=== PATIENT | male | born 2000 | race Caucasian/White ===

== ENCOUNTER 2021-03-20 13:40 | Emergency (ER) | payer MEDICAID, SELFPAY ==
[2021-03-20 14:09] VITALS: BP 152/81; PULSE 105; RESP 18; TEMP 37.3; O2SAT 97; BMI 23.0
[2021-03-20] MEDS: Amoxicillin/Potassium Clav 875 MG TABLET PO (14:33)
[2021-03-20] MEDS: Ibuprofen 400 MG TABLET PO (14:33)
--- NOTE | 2021-03-20 14:40 | ED.GENADULT ---
HPI - General Adult General Chief complaint: General Medical Stated complaint: Strept Time Seen by Provider: 03/20/21 14:02 Source: patient Mode of arrival: ambulatory History of Present Illness HPI narrative: 20-year-old male with no significant past medical history presenting to ED complaining of sore throat, tonsillar swelling, subjective fever, headaches/myalgias x 3-4 days. Admits to strep throat commonly & these symptoms are similar. Denies inability/difficulty swallowing, drooling, cough, CP/SOB, recent travel, COVID-19 exposure. Is vaccinated for COVID-19 Onset (ago): day(s) Related Data Previous Rx's Medication Instructions Recorded amoxicillin 875 mg-potassium 1 tab PO Q12H 7 Days #14 tab 03/20/21 clavulanate 125 mg tablet (Augmentin) Allergies Allergy/AdvReac Type Severity Reaction Status Date / Time No Known Allergies Allergy Verified 03/20/21 14:23 Review of Systems Review of Systems: Constitutional: + Fever, + Chills ENT/Mouth: No Ear Pain, No Nasal Congestion, No Sinus Pain, No Hoarseness, + sore throat, No Rhinorrhea, No Swallowing Difficulty Cardiovascular: No Chest Pain, No SOB Respiratory: No Cough, No Sputum, No Wheezing Gastrointestinal: No Nausea, No Vomiting, No Diarrhea, No Constipation, No Abdominal pain Genitourinary: No Dysuria, No Hematuria, No Flank Pain Musculoskeletal: No joint pain, + Myalgias Skin: No Skin Lesions, No rash Neuro: No Weakness, No Numbness, +headache Yes all other systems are reviewed and are negative [facility] Past Medical History Attestation statement: The following information was validated with the patient. Medical History No known health problems Social History Social History Advance Directives: Yes Advance Directives Information Provided: Yes Advance Directives on File: No Physical Exam Vital Signs: Vital Signs: Last Vital Signs Temp 99.2 F 03/20/21 14:09 Pulse 105 H 03/20/21 14:09 Resp 18 03/20/21 14:09 BP 152/81 H 03/20/21 14:09 Pulse Ox 97 03/20/21 14:09 BMI result Body Mass Index 23.0 Const: General: cooperative, healthy appearing and no acute distress Orientation/consciousness: patient oriented x3 Limitations: no limitations HENMT: Other: + bilateral tonsillar erythema, swelling, and exudates Head: Yes normal to inspection Ears: hearing grossly normal bilaterally, external ears normal, TM's normal bilaterally and mastoids normal General nose exam: Normal external nose present Face and sinus: Yes normal facial exam Mouth: Normal oral and palatal mucosa present Throat: Yes abnormal tonsil, No peritonsillar mass and No uvula laterally displaced Eyes: General: appearance normal, both eyes and all related structures EOM: EOMs intact bilaterally Neck: Other: + submandibular lymphadenopathy Neck: Yes normal visual inspection and No anterior neck swelling Resp: Effort & Inspection: normal respiratory effort and no stridor Auscultation: clear to auscultation bilaterally, no rales, no rhonchi and no wheezes Cardio: Rate: regular rate Heart sounds: S1 normal heart sound present and S2 normal heart sound present Skin: Rashes: no rashes Wounds: no wounds Neuro: General: patient oriented x3 Gait exam (Neuro): Normal gait present Extrem: General: Yes normal to inspection Course Course Course Narrative: -rapid strep and COVID-19 negative. Patient given 1st dose of Augmentin in the ED as clinically has strep pharyngitis Medical Decision Making [facility] Narrative Medical decision making narrative: 20-year-old male with no significant past medical history presenting to ED complaining of sore throat, tonsillar swelling, subjective fever, headaches/myalgias times 3-4 days. On exam mildly tachycardic likely from low-grade fever 99.2, physical exam as above consistent with strep pharyngitis. Will rule out COVID-19/viral illness. Low concern for pneumonia Plan: Rapid strep, COVID-19, 1st dose of Augmentin Medical Records Medical records reviewed: Yes I reviewed the patient's medical records. Lab Data Lab results reviewed: Yes I reviewed the patient's lab results. Labs: Lab Results 03/20/21 03/20/21 Range/Units 14:30 14:30 COVID-19 (NSETOR) Negative (Negative) COVID-19 Clin Com See Note S. pyogenes GrpA JOSE Negative (Negative) Discharge Plan Discharge Clinical Impression: Strep pharyngitis Patient Disposition: Home, Self-Care Instructions: Strep Throat (ED) Additional Instructions: You tested negative for COVID-19. You likely have strep throat. Augmentin as an antibiotic please take as prescribed Please take Tylenol and Motrin at home as needed for pain and fever/swelling Stay hydrated Gargle with warm salt water Follow-up with her doctor as needed Prescriptions: New amoxicillin-pot clavulanate [Augmentin] 875-125 mg tablet 1 tab PO Q12H 7 Days Qty: 14 RF: 0 Referrals: Physician,Unknown J [Primary Care Provider] - 2 days
[2021-03-20 15:17] LABS: IDNOW Serial# 55D5AD1C; Strep A Nucleic Acid Negative (Negative)
[2021-03-20 15:18] LABS: COVID-19 Test Negative (Negative); IDNOW Serial# 55D5AD1C
[2021-03-20 15:34] VITALS: BP 121/72; PULSE 99; RESP 18; TEMP 36.7; O2SAT 95
== END 2021-03-20 15:46 | disposition home or self-care (01) ==
PROVIDERS: Physician Assistant; Emergency Provider Emergency Medicine
DX: J02.0 Streptococcal pharyngitis (principal); Z20.822 Contact with and (suspected) exposure to COVID-19; Z79.899 Other long term (current) drug therapy
CPT/HCPCS: 36415; 87635; 87651; 99283

== ENCOUNTER 2023-01-07 18:18 | Inpatient (IN) | payer SELFPAY ==
[2023-01-07 18:47] VITALS: BP 122/72; PULSE 67; RESP 14; TEMP 37; O2SAT 97; BMI 24.8
--- NOTE | 2023-01-07 20:04 | ED.GENADULT ---
HPI - General Adult General Chief complaint: General Medical Stated complaint: foreign body in rectum Time Seen by Provider: 01/07/23 20:55 Source: patient Mode of arrival: ambulatory Limitations: no limitations History of Present Illness HPI narrative: Patient comes to the emergency room complaining of a foreign body stuck in the rectum. Patient states that he has had a dildo in his rectum since 16:00, 6 hours ago. Patient complaining of mild abdominal cramping, no severe abdominal pain , no rectal pain. Patient denies any rectal bleeding. Related Data Previous Rx's Medication Instructions Recorded amoxicillin 875 mg-potassium 1 tab PO Q12H 7 days #14 tabs 03/20/21 clavulanate 125 mg tablet (Augmentin) Allergies Allergy/AdvReac Type Severity Reaction Status Date / Time No Known Allergies Allergy Verified 03/20/21 14:23 Review of Systems Review of Systems: Constitutional : No Weight loss, No Fever, No Chills, No Night Sweats, No Fatigue, No Malaise ENT/Mouth : No Hearing loss, No Ear Pain, No Nasal Congestion, No Sinus Pain, No Hoarseness, No sore throat, No Rhinorrhea, No Swallowing Difficulty Eyes: No Eye Pain, No Swelling, No Redness, No Foreign Body, No Discharge, No Vision Changes Cardiovascular : No Chest Pain, No SOB, No Dyspnea on Exertion, No Orthopnea, No Edema, No Palpitations Respiratory : No Cough, No Sputum, No Wheezing, No Smoke Exposure, No Dyspnea Gastrointestinal : No Nausea, No Vomiting, No Diarrhea, No Constipation, No abdominal Pain, No Hematochezia, No Melena, complaining of dildo stuck in rectum Genitourinary : no irregular bleeding, No Dysuria, No Urinary Frequency, No Hematuria, No Urinary Incontinence, No Urgency, No Flank Pain, No Urinary Flow Changes, No Hesitancy Musculoskeletal : No joint pain, No Myalgias, No Joint Swelling Skin : No Skin Lesions, No rash Neuro : No Weakness, No Numbness, No Paresthesias, No Loss of Consciousness, No Dizziness, No Headache Psych : No Anxiety/Panic, No Depression, No SI/HI/AH/VH, No Social Issues, Heme/Lymph: No Bruising, No Bleeding,No Lymphadenopathy Endocrine : No Polyuria, No Polydipsia, No Temperature Intolerance PMFSH Past Medical History Medical History No known health problems Social History Social History Advance Directives: No Physical Exam ED Vital Signs: Vital Signs - 24 hr 01/07/23 18:47 Temperature 98.6 F Pulse Rate 67 Respiratory Rate 14 Blood Pressure 122/72 Pulse Oximetry 97 Oxygen Delivery Method Room Air BMI result Body Mass Index 24.8 Const Other: Appearance: Alert. Oriented X3. No acute distress. Eyes: Pupils equal, round and reactive to light. ENT: Pharynx normal. Neck: Normal inspection. Neck supple. No lymph nodes noted. No crepitus CVS: Normal heart rate and rhythm. Pulses normal. Normal S1 and S2 Respiratory: No respiratory distress. Breath sounds normal. No Wheezing. No rales Abdomen: Soft and nontender. No rigidity. No distention. On digital rectal exam, I was unable to palpate the tip of the foreign body Skin: Skin warm and dry. Normal skin color. Normal skin turgor. Extremities: No lower extremity edema. No Lacerations. No Rash Neuro: Oriented X 3. No motor deficit. No sensory deficit. Moving all extremities. No slurred speech. CN 2 through 12 grossly intact Psych: calm, cooperative, normal affect Course Course Course Narrative: This is an RME: Additional HPI, ROS, PE not included below will be deferred to primary provider. 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 Denies pain, N/V, ABD pain. Ambulating and sittin without difficulty. Plan: XR pelvis Medical Decision Making Medical Decision Making MDM Narrative: -my interpretation of KUB: Unclear if there was a foreign body in rectum? -my interpretation of CT scan: Foreign body present above the rectum -I attempted a digital rectal exam, however, the foreign body is too far up and could not palpate the distal end of the foreign body. -I discussed the above-mentioned with Dr. Rodriguez from surgery, patient will be going to the OR -per patient, the last time he ate was at 14:00, 9 hours ago Differential Diagnosis Differential Diagnoses: The differential diagnosis associated with the presentation includes (For rectal body and rectum, sigmoid colon perforation) Admission/Observation Consideration of admission/observation: Escalation of care including admission/observation considered Consult Healthcare Provider Management of the patient was discussed with: Tuber Operator Independent Interpretation I performed an independent interpretation of an: CT Scan Radiology Impression Discussion of test interpretation with radiology: I have reviewed the radiologist's reading. Radiologist Impression: There is an elongated tubular foreign body centered within the sigmoid colon with mildly hyperattenuating characteristics (84 Hounsfield units), measuring 15 x 3.5 x 3.8 cm. The distal end of this foreign body is approximately 11 cm from the anal sphincter. The descending colon and rectum are completely decompressed. Normal appearance of the cecum and appendix. No demonstrated pelvic free fluid collection or free gas. Normal appearance of the prostate gland, seminal vesicles, and urinary bladder. MUSCULOSKELETAL: Normal appearance of the sacrum, innominate bones, and bilateral hips. Normal appearance of the sacroiliac joints and pubic symphysis. No demonstrated significant abnormalities of the pelvic soft tissues. CT/CT pelvis wo IV con IMPRESSION: There is a 15 cm elongated tubular foreign body centered within the sigmoid colon. The distal end of this foreign body is approximately 11 cm from the anal sphincter. Independent Historian Clinical information obtained from an independent historian. History obtained from or confirmed by: Other (Partner) Critical Care Time Critical Care Time Critical Care Time: Yes Total Critical Care Time: 60 Attestation: I have personally provided critical care time. Time includes review of lab data, radiology results, discussion with consultants, and monitoring for potential decompensation. Intervention performed as documented. Discharge Plan Discharge Clinical Impression: Rectal foreign body Patient Disposition: Still a Patient Prescriptions: No Action amoxicillin-pot clavulanate [Augmentin] 875-125 mg tablet 1 tab PO Q12H 7 Days Qty: 14 0RF
--- NOTE | 2023-01-07 20:10 | PC.NURSE ---
pt currently taken to xray.
--- NOTE | 2023-01-07 22:53 | PC.NURSE ---
This RN assumed care at 2129. RN asked patient to draw picture of rectal foreign body, patient shanna a 7 inch silicone dildo that he states he McGyver'ed and took off the suction cup at the base of the toy. Patient also stated he feels the toy is traveling further up and that he's experiencing more cramps, IV placed and MD aware of patient's pain. Plan is for patient to go to operating room. Plan of care ongoing
[2023-01-07 23:12] LABS: Alanine Aminotransferase 21 U/L (0-40); Albumin Level 4.9 g/dL (3.5-5.0); Alkaline Phosphatase 56 U/L (39-117); Anion Gap 14 (12-20); Aspartate Amino Transferase 22 U/L (5-37); Bilirubin Direct 0.1 mg/dL (0.0-0.5); Bilirubin Total 0.4 mg/dL (0.0-1.0); Blood Urea Nitrogen 16 mg/dL (9-16); Calcium 9.9 mg/dL (8.4-10.2); Carbon Dioxide 25 mmol/L (22-29); Chloride 106 mmol/L (96-108); Creatinine Clr Calc Pharmacy 94.1; Estimated Glomerular Filt Rate > 60; Glucose Random 88 mg/dL (60-115); Potassium 4.5 mmol/L (3.3-5.1); Sodium 140 mmol/L (135-145); Total Protein 8.4 g/dL (6.5-8.0)
[2023-01-08] VITALS (13 sets, daily range): BP systolic 97–148; BP diastolic 47–82; PULSE 65–95; RESP 14–18; TEMP 36.2–37.2; O2SAT 96–100; BMI 29.1
--- NOTE | 2023-01-08 00:03 | PM.HPGS ---
History of Present Illness History of Present Illness Date of Service: 01/08/23 Chief complaint: foreign body in rectum Narrative: Geovanna Mercado is a 22 year old male Who with his partner earlier today inserted a silicone still though in the rectum which got stuck. They have been unable to get it. As result patient comes in here. He has been having some cramping but nothing in lines of peritonitis. No nausea or vomiting. Patient is relatively healthy otherwise. Review of Systems Review of Systems: Yes all other systems are reviewed and are negative [facility] Past Medical History Medical History No known health problems Social History Social History Advance Directives: No Meds Allergies Allergy/AdvReac Type Severity Reaction Status Date / Time No Known Allergies Allergy Verified 03/20/21 14:23 Physical Exam Vital Signs: Vital Signs: Last Vital Signs Temp 98.6 F 01/07/23 18:47 Pulse 67 01/07/23 18:47 Resp 14 01/07/23 18:47 BP 122/72 01/07/23 18:47 Pulse Ox 97 01/07/23 18:47 O2 Del Method Room Air 01/07/23 18:47 BMI result Body Mass Index 24.8 Const: General: cooperative, healthy appearing, comfortable and no acute distress HEENT: Head: Yes normal to inspection Resp: Effort & Inspection: normal respiratory effort and able to speak in complete sentences Auscultation: clear to auscultation bilaterally Cardio: Rate: regular rate Rhythm: regular rhythm GI: Other: Abdomen is soft nondistended nontender Skin: General skin exam: no rashes or lesions noted Results Results Labs: Short CBC 01/07/23 Range/Units 22:44 WBC 15.1 H (4.8-10.8) X10*3/uL Hgb 15.2 (14.0-18.0) g/dl Hct 44.1 (42.0-52.0) % Plt Count 348 (160-400) X10*3/uL BMP 01/07/23 22:44 Sodium 140 Potassium 4.5 Chloride 106 Carbon Dioxide 25 BUN 16 Creatinine 0.99 Calcium 9.9 Liver Function 01/07/23 Range/Units 22:44 Total Bilirubin 0.4 (0.0-1.0) mg/dL Direct Bilirubin 0.1 (0.0-0.5) mg/dL AST 22 (5-37) U/L ALT 21 (0-40) U/L Alkaline Phosphatase 56 (39-117) U/L Albumin 4.9 (3.5-5.0) g/dL Abdomen CT scan report/results: report reviewed and image reviewed CT scan - pelvis: report reviewed and image reviewed Assessment and Plan (1) Rectal foreign body: Status: Acute Plan 22-year-old male with rectal foreign body unable to be extracted no evidence of peritonitis. Plan to carry out exam under general anesthesia and hopefully we can manually remove it per rectum. If not may require exploratory laparotomy possible colotomy and possible colostomy. Patient understands the risks and benefits and agrees to the procedure. Time Spent With Patient Time: Total time managing care of this patient today ____ minutes. Quality Stroke Does the patient have a stroke diagnosis?: No VTE Prior VTE?: No VTE Risk Level:: Surgical - low VTE Device Contraindication: N/A - Device Ordered VTE Drug Contraindication: Treatment Not Indicated Procedures Date of Service Date of Service: 01/08/23
--- NOTE | 2023-01-08 00:31 | PC.NURSE ---
Report given to Uziel in OR, patient medicated per MAR and transferred over by Sobeida VARELA
--- NOTE | 2023-01-08 05:29 | HO.ANESPROP2 ---
[facility] Active Problems Active Problems: All Active Problems (Updated 01/07/23 @ 23:00 by Maranda Medina MD) Rectal foreign body (Acute) Past Medical History Medical History No known health problems Family History Family history of problems with anesthesia: No Surgical History History of Problems with Anesthesia: No Social History Social History Substance Use Type: Marijuana Substance Use Frequency: Occasionally Advance Directives: No Meds Allergies Allergy/AdvReac Type Severity Reaction Status Date / Time No Known Allergies Allergy Verified 03/20/21 14:23 Exam Exam Date and Time: January 08, 2023 05 Height,Weight and Vital Signs: Height 5 ft 3 in Weight 63.503 kg Last Vital Signs Temp 98.5 F 01/08/23 05:25 Pulse 90 01/08/23 05:25 Resp 16 01/08/23 05:25 BP 148/64 H 01/08/23 05:25 Pulse Ox 100 01/08/23 05:25 O2 Del Method Nasal Cannula 01/08/23 05:25 O2 Flow Rate 4 01/08/23 05:25 Pertinent Lab Results Pertinent Lab Results: Laboratory Tests 01/07/23 22:44 WBC 15.1 H RBC 5.32 Hgb 15.2 Hct 44.1 MCV 82.9 MCH 28.6 MCHC 34.5 RDW 12.4 Plt Count 348 MPV 9.3 L Immature Gran % (Auto) 0.7 H Neut % (Auto) 60.5 Lymph % (Auto) 29.9 [place] % (Auto) 7.3 Eos % (Auto) 1.0 Baso % (Auto) 0.6 Lymph # (Auto) 4.5 [place] # (Auto) 1.1 Eos # (Auto) 0.2 Baso # (Auto) 0.1 Abs Immat Gran (auto) 0.11 H Absolute Neuts (auto) 9.1 H Absolute Nucleated RBC 0.000 Nucleated RBC % (auto) 0.0 PT 11.9 INR 1.0 APTT 32.5 Sodium 140 Potassium 4.5 Chloride 106 Carbon Dioxide 25 Anion Gap 14 BUN 16 Creatinine 0.99 Estim Creat Clear Calc 94.1 Estimated GFR > 60 Random Glucose 88 Calcium 9.9 Total Bilirubin 0.4 Direct Bilirubin 0.1 AST 22 ALT 21 Alkaline Phosphatase 56 Total Protein 8.4 H Albumin 4.9 Airway Mallampati Class: II TM Dist: >3cm Neck ROM: Full Assessment and Plan Assessment Anesthesia Assessment: Anesthesia Plan Discussed and Chart Reviewed Final Anesthetic Review Family History of Problems with Anesthesia: No History of Problems with Anesthesia: No NPO: Yes ASA Class: II and Emergency Final Preanesthetic Review: No Changes in Pt Med Stat, Meds/Allgs Chart Reviewed, Consent Obtained/Reviewed and Anes Risks/Benef Reviewed Patient Risk: Low Procedure Risk: Intermediate Anesthetic Plan Anesthetic Plan: GA Disposition: Standard PACU
--- NOTE | 2023-01-08 16:27 | MHC.CM.PN ---
PT REPORTS HE LIVES WITH HIS PARTNER AND IS INDEPENDENT WITH CARE PT HAS NO DME AND NO SERVICES PT ALSO HAS NO PCP AND HAS BEEN UNABLE TO TRANSITION TO FROM [place] REFERR[place] SENT TO [facility] PT DECLINES TO COMPLETE A HCP DCP: HOME NO SERVICES VIA PRIVATE TRANSPORT
--- NOTE | 2023-01-08 20:36 | PM.PNGS ---
Subjective Subjective Date of Service: 01/08/23 Interval history: pt doing well, not passing gas as yet, no bowel movement. was complaining of rectal pain earlier but improved now. no bleeding. having abdo cramping tolerating liquids well Physical Exam Vital Signs: Vital Signs: Last Vital Signs Temp 97.5 F 01/08/23 19:46 Pulse 89 01/08/23 19:46 Resp 16 01/08/23 19:46 BP 97/47 L 01/08/23 19:46 Pulse Ox 96 01/08/23 19:46 O2 Del Method Room Air 01/08/23 19:46 O2 Flow Rate 2 01/08/23 06:40 Oxygen Flow Rate 1 01/08/23 06:06 BMI result Body Mass Index 29.1 Const: General: cooperative, healthy appearing, comfortable and no acute distress Resp: Effort & Inspection: normal respiratory effort Auscultation: clear to auscultation bilaterally Cardio: Rate: regular rate Rhythm: regular rhythm GI: Other: abdo soft little distended, tender at incision area - hypo bowel sounds Objective Data Active Medications Docusate Sodium (Docusate Sodium 100 Mg Capsule) 100 mg PO BID [facility] Last Admin: 01/08/23 20:19 Dose: 100 mg Documented By: JASON Famotidine (Famotidine 20 Mg Tablet) 20 mg PO BID [facility] Last Admin: 01/08/23 20:19 Dose: 20 mg Documented By: JASON Fentanyl (Fentanyl Citrate/Pf 100 Mcg/2 Ml Vial) 50 mcg IVPUSH Q5M PRN; Protocol PRN Reason: Pain, Severe (Pain Scale 7-10) Sodium Chloride (Ns) 1,000 mls @ 100 mls/hr IVCONT .Q10H [facility] Last Admin: 01/08/23 16:07 Dose: 100 mls/hr Documented By: JASON Cefotetan Disodium 2 gm/ (Sodium Chloride) 50 mls @ 100 mls/hr IV Q12H [facility] Stop: 01/09/23 08:00 Last Infusion: 01/08/23 19:26 Dose: Infused Documented By: JASON Ketorolac Tromethamine (Ketorolac Tromethamine 30 Mg/Ml Vial) 30 mg IVPUSH RQ6H [facility] Last Admin: 01/08/23 17:49 Dose: 30 mg Documented By: JASON Ondansetron HCl (Ondansetron Hcl 4 Mg/2 Ml Vial) 4 mg IVPUSH ONCE PRN PRN Reason: Nausea and Vomiting Ondansetron HCl (Ondansetron Hcl 4 Mg/2 Ml Vial) 4 mg IVPUSH Q8H PRN PRN Reason: Nausea and Vomiting Oxycodone HCl (Oxycodone Hcl Immed Release 5 Mg Tablet) 10 mg PO Q6H PRN PRN Reason: Pain, Moderate(Pain Scale 4-6) Last Admin: 01/08/23 16:13 Dose: 10 mg Documented By: JASON Sodium Chloride (0.9 % Sodium Chloride Flush 3 Ml Syringe) 3 ml IVFLUSH QSHIFT [facility] Last Admin: 01/08/23 16:07 Dose: Not Given Documented By: JASON Non-Admin Reason: IV Running Labs 01/07/23 22:44 01/07/23 22:44 Labs: Laboratory Results - last 24 hr 01/07/23 22:44 MCV 82.9 MCH 28.6 MCHC 34.5 RDW 12.4 Plt Count 348 MPV 9.3 L Immature Gran % (Auto) 0.7 H Neut % (Auto) 60.5 Lymph % (Auto) 29.9 [place] % (Auto) 7.3 Eos % (Auto) 1.0 Baso % (Auto) 0.6 Lymph # (Auto) 4.5 [place] # (Auto) 1.1 Eos # (Auto) 0.2 Baso # (Auto) 0.1 Abs Immat Gran (auto) 0.11 H Absolute Neuts (auto) 9.1 H Absolute Nucleated RBC 0.000 Nucleated RBC % (auto) 0.0 PT 11.9 INR 1.0 APTT 32.5 Anion Gap 14 Estim Creat Clear Calc 94.1 Estimated GFR > 60 Random Glucose 88 Calcium 9.9 Total Bilirubin 0.4 Direct Bilirubin 0.1 AST 22 ALT 21 Alkaline Phosphatase 56 Total Protein 8.4 H Albumin 4.9 Procedures Date of Service Date of Service: 01/08/23 Progress Note: A&P Assessment and plan (1) Rectal foreign body: Status: Acute Assessment and Plan: postop laparatomy for foreign body doing well cont with liquids diet, ambulate, ivf, po and iv pain meds stool softeners duarte out and urinating well Time Spent With Patient Time: Total time managing care of this patient today ____ minutes. Quality Stroke Does the patient have a stroke diagnosis?: No VTE Prior VTE?: No VTE Risk Level:: Surgical - low VTE Device Contraindication: N/A - Device Ordered VTE Drug Contraindication: Treatment Not Indicated
[2023-01-09 03:50] VITALS: BP 105/53; PULSE 71; RESP 18; TEMP 36.5; O2SAT 96
[2023-01-09 06:21] LABS: Anion Gap 13 (12-20); Blood Urea Nitrogen 8 mg/dL (9-16); Calcium 8.6 mg/dL (8.4-10.2); Carbon Dioxide 22 mmol/L (22-29); Chloride 107 mmol/L (96-108); Creatinine Clr Calc Pharmacy 121.7; Estimated Glomerular Filt Rate > 60; Glucose Random 90 mg/dL (60-115); Potassium 3.8 mmol/L (3.3-5.1); Sodium 138 mmol/L (135-145)
[2023-01-09 07:00] VITALS: BP 106/52; PULSE 94; RESP 16; TEMP 35.5; O2SAT 97
[2023-01-09 15:37] VITALS: BP 124/68; PULSE 76; RESP 17; TEMP 36.7; O2SAT 97
--- NOTE | 2023-01-09 15:52 | PM.PNGS ---
Subjective Subjective Date of Service: 01/09/23 Interval history: feeling better, passing gas more comfortable tolerating liquids well wants to eat Physical Exam Vital Signs: Vital Signs: Last Vital Signs Temp 98.0 F 01/09/23 15:37 Pulse 76 01/09/23 15:37 Resp 17 01/09/23 15:37 BP 124/68 01/09/23 15:37 Pulse Ox 97 01/09/23 15:37 O2 Del Method Room Air 01/09/23 15:37 O2 Flow Rate 2 01/08/23 06:40 Oxygen Flow Rate 1 01/08/23 06:06 BMI result Body Mass Index 29.1 Const: General: cooperative, healthy appearing, comfortable and no acute distress Resp: Effort & Inspection: normal respiratory effort Cardio: Rate: regular rate Rhythm: regular rhythm GI: Other: abdo soft mild distension still little quiet bowel sounds, incision is clean and dry looks good. Objective Data Active Medications Docusate Sodium (Docusate Sodium 100 Mg Capsule) 100 mg PO BID [facility] Last Admin: 01/09/23 07:44 Dose: 100 mg Documented By: KIESHA Famotidine (Famotidine 20 Mg Tablet) 20 mg PO BID [facility] Last Admin: 01/09/23 07:44 Dose: 20 mg Documented By: KIESHA Fentanyl (Fentanyl Citrate/Pf 100 Mcg/2 Ml Vial) 50 mcg IVPUSH Q5M PRN; Protocol PRN Reason: Pain, Severe (Pain Scale 7-10) Ketorolac Tromethamine (Ketorolac Tromethamine 30 Mg/Ml Vial) 30 mg IVPUSH RQ6H [facility] Last Admin: 01/09/23 11:33 Dose: 30 mg Documented By: KIESHA Ondansetron HCl (Ondansetron Hcl 4 Mg/2 Ml Vial) 4 mg IVPUSH ONCE PRN PRN Reason: Nausea and Vomiting Ondansetron HCl (Ondansetron Hcl 4 Mg/2 Ml Vial) 4 mg IVPUSH Q8H PRN PRN Reason: Nausea and Vomiting Oxycodone HCl (Oxycodone Hcl Immed Release 5 Mg Tablet) 10 mg PO Q6H PRN PRN Reason: Pain, Moderate(Pain Scale 4-6) Last Admin: 01/09/23 07:43 Dose: 10 mg Documented By: KIESHA Sodium Chloride (0.9 % Sodium Chloride Flush 3 Ml Syringe) 3 ml IVFLUSH QSHIFT [facility] Last Admin: 01/09/23 15:20 Dose: 3 ml Documented By: JASON Labs 01/09/23 05:38 01/09/23 05:38 Labs: Laboratory Results - last 24 hr 01/09/23 05:38 MCV 86.1 MCH 28.5 MCHC 33.1 RDW 12.6 Plt Count 283 MPV 9.6 Immature Gran % (Auto) 0.6 H Neut % (Auto) 60.2 Lymph % (Auto) 27.1 [place] % (Auto) 10.7 Eos % (Auto) 1.1 Baso % (Auto) 0.3 Lymph # (Auto) 3.2 [place] # (Auto) 1.3 H Eos # (Auto) 0.1 Baso # (Auto) 0.0 Abs Immat Gran (auto) 0.07 H Absolute Neuts (auto) 7.2 Absolute Nucleated RBC 0.000 Nucleated RBC % (auto) 0.0 Anion Gap 13 Estim Creat Clear Calc 121.7 Estimated GFR > 60 Random Glucose 90 Calcium 8.6 D Procedures Date of Service Date of Service: 01/09/23 Progress Note: A&P Assessment and plan (1) Rectal foreign body: Status: Acute Assessment and Plan: pod! from explor lap and colotomy and removal of sigmoid colon foreign body. doing well plan to advance slowly diet and heplock and ambulate and dressing care. if tolerating po and has a bowel movement by tomorrow consider dc home on stool softeners Time Spent With Patient Time: Total time managing care of this patient today ____ minutes. Quality Stroke Does the patient have a stroke diagnosis?: No VTE Prior VTE?: No VTE Risk Level:: Surgical - low VTE Device Contraindication: N/A - Device Ordered VTE Drug Contraindication: Treatment Not Indicated
[2023-01-09 19:37] VITALS: BP 141/87; PULSE 79; RESP 18; TEMP 36.8; O2SAT 96
[2023-01-10 04:00] VITALS: BP 112/59; PULSE 81; RESP 16; TEMP 36.3; O2SAT 96
[2023-01-10 07:04] VITALS: BP 121/62; PULSE 68; RESP 16; TEMP 36.7; O2SAT 96
--- NOTE | 2023-01-10 07:45 | PM.PNGS ---
Subjective Subjective Date of Service: 01/10/23 Interval history: Reports tolerating liquids but when advanced to solid diet became nauseated with some increased abdominal pain. Reports passing flatus but denies bowel movement. Physical Exam Vital Signs: Vital Signs: Last Vital Signs Temp 98.0 F 01/10/23 07:04 Pulse 68 01/10/23 07:04 Resp 16 01/10/23 07:04 BP 121/62 01/10/23 07:04 Pulse Ox 96 01/10/23 07:04 O2 Del Method Room Air 01/10/23 07:04 O2 Flow Rate 2 01/08/23 06:40 Oxygen Flow Rate 1 01/08/23 06:06 BMI result Body Mass Index 29.1 Const: General: no acute distress Nutritional Appearance: well nourished Orientation/consciousness: patient oriented x3 Limitations: no limitations Resp: Effort & Inspection: normal respiratory effort, no audible wheezes, no cough and no respiratory distress GI: Other: Soft and nondistended, midline incision clean and intact Skin: Other: warm, dry, no rash Neuro: General: patient oriented x3 Extrem: Other: no pedal edema Objective Data Active Medications Docusate Sodium (Docusate Sodium 100 Mg Capsule) 100 mg PO BID [facility] Last Admin: 01/10/23 07:39 Dose: 100 mg Documented By: ELIEL Famotidine (Famotidine 20 Mg Tablet) 20 mg PO BID [facility] Last Admin: 01/10/23 07:39 Dose: 20 mg Documented By: ELIEL Fentanyl (Fentanyl Citrate/Pf 100 Mcg/2 Ml Vial) 50 mcg IVPUSH Q5M PRN; Protocol PRN Reason: Pain, Severe (Pain Scale 7-10) Ketorolac Tromethamine (Ketorolac Tromethamine 30 Mg/Ml Vial) 30 mg IVPUSH RQ6H [facility] Last Admin: 01/10/23 06:20 Dose: 30 mg Documented By: RINA Ondansetron HCl (Ondansetron Hcl 4 Mg/2 Ml Vial) 4 mg IVPUSH ONCE PRN PRN Reason: Nausea and Vomiting Ondansetron HCl (Ondansetron Hcl 4 Mg/2 Ml Vial) 4 mg IVPUSH Q8H PRN PRN Reason: Nausea and Vomiting Oxycodone HCl (Oxycodone Hcl Immed Release 5 Mg Tablet) 10 mg PO Q6H PRN PRN Reason: Pain, Moderate(Pain Scale 4-6) Last Admin: 01/09/23 07:43 Dose: 10 mg Documented By: KIESHA Sodium Chloride (0.9 % Sodium Chloride Flush 3 Ml Syringe) [facility] Last Admin: 01/10/23 07:39 Dose: 3 ml Documented By: KODOSOB Labs 01/09/23 05:38 01/09/23 05:38 Procedures Date of Service Date of Service: 01/10/23 Progress Note: A&P Assessment and plan (1) Rectal foreign body: Status: Acute Plan pod 2 following exploratory laparotomy, colotomy with removal of foreign body. Patient is tolerating liquids but having difficulty with solid food. Still requiring parental pain medication. Awaiting return of bowel function. Patient will need another day in the hospital. Encourage out of bed and ambulation, deep breathing exercises. Time Spent With Patient Time: Total time managing care of this patient today ____ minutes. No Severe Sepsis: No Severe Sepsis Quality Stroke Does the patient have a stroke diagnosis?: No VTE Prior VTE?: No VTE Risk Level:: Surgical - low VTE Device Contraindication: N/A - Device Ordered VTE Drug Contraindication: Treatment Not Indicated
[2023-01-10 15:01] VITALS: BP 117/58; PULSE 74; RESP 16; TEMP 36.8; O2SAT 97
--- NOTE | 2023-01-10 17:28 | PC.NURSE ---
pt had no c/o pain or discomfort stating he did not need the IVP pain med. Per MD pt not being discharged today. family at bedside.
[2023-01-10 19:54] VITALS: BP 118/69; PULSE 74; RESP 18; TEMP 36.4; O2SAT 97
[2023-01-11 02:53] VITALS: BP 108/58; PULSE 65; RESP 18; TEMP 36.5; O2SAT 98
[2023-01-11 07:14] VITALS: BP 115/57; PULSE 66; RESP 16; TEMP 36.2; O2SAT 98
--- NOTE | 2023-01-11 07:40 | PM.PNGS ---
Subjective Subjective Date of Service: 01/11/23 <Jacqueline Christensen PA-C - Last Filed: 01/11/23 07:42> 01/11/23 <David Santos MD - Last Filed: 01/11/23 07:52> Interval history: Tolerating diet. Had multiple loose BMs overnight. Ready to go home. <Jacqueline Christensen PA-C - Last Filed: 01/11/23 07:42> Physical Exam Vital Signs: Vital Signs: Last Vital Signs Temp 97.1 F 01/11/23 07:14 Pulse 66 01/11/23 07:14 Resp 16 01/11/23 07:14 BP 115/57 L 01/11/23 07:14 Pulse Ox 98 01/11/23 07:14 O2 Del Method Room Air 01/11/23 07:14 O2 Flow Rate 2 01/08/23 06:40 Oxygen Flow Rate 1 01/08/23 06:06 BMI result Body Mass Index 29.1 <Jacqueline Christensen PA-C - Last Filed: 01/11/23 07:42> Const: General: comfortable, no acute distress and alert <Jacqueline Christensen PA-C - Last Filed: 01/11/23 07:42> Orientation/consciousness: patient oriented x3 <Jacqueline Christensen PA-C - Last Filed: 01/11/23 07:42> GI: Inspection: No distended and Yes incision (clean, jefferson intact) <Jacqueline Christensen PA-C - Last Filed: 01/11/23 07:42> Palpation (GI): Soft to palpation, no guarding and not rigid <Jacqueline Christensen PA-C - Last Filed: 01/11/23 07:42> Skin: General skin exam: no rashes or lesions noted <BOB Rodrigez Last Filed: 01/11/23 07:42> Neuro: General: patient oriented x3 and moves all extremities <BOB Rodrigez Last Filed: 01/11/23 07:42> Objective Data Active Medications Docusate Sodium (Docusate Sodium 100 Mg Capsule) 100 mg PO BID [facility] Last Admin: 01/11/23 07:29 Dose: Not Given Documented By: RODOLFO Non-Admin Reason: having loose stool Famotidine (Famotidine 20 Mg Tablet) 20 mg PO BID [facility] Last Admin: 01/11/23 07:29 Dose: 20 mg Documented By: RODOLFO Fentanyl (Fentanyl Citrate/Pf 100 Mcg/2 Ml Vial) 50 mcg IVPUSH Q5M PRN; Protocol PRN Reason: Pain, Severe (Pain Scale 7-10) Ketorolac Tromethamine (Ketorolac Tromethamine 30 Mg/Ml Vial) 30 mg IVPUSH RQ6H [facility] Last Admin: 01/11/23 06:33 Dose: Not Given Documented By: NIKKY Non-Admin Reason: Patient Refused Ondansetron HCl (Ondansetron Hcl 4 Mg/2 Ml Vial) 4 mg IVPUSH ONCE PRN PRN Reason: Nausea and Vomiting Ondansetron HCl (Ondansetron Hcl 4 Mg/2 Ml Vial) 4 mg IVPUSH Q8H PRN PRN Reason: Nausea and Vomiting Oxycodone HCl (Oxycodone Hcl Immed Release 5 Mg Tablet) 10 mg PO Q6H PRN PRN Reason: Pain, Moderate(Pain Scale 4-6) Last Admin: 01/09/23 07:43 Dose: 10 mg Documented By: KIESHA Sodium Chloride (0.9 % Sodium Chloride Flush 3 Ml Syringe) 3 ml IVFLUSH QSHIFT [facility] Last Admin: 01/11/23 07:29 Dose: 3 ml Documented By: RODOLFO <Jacqueline Christensen PA-C - Last Filed: 01/11/23 07:42> Labs CBC & Chem 7: 01/09/23 05:38 01/09/23 05:38 <Jacqueline Christensen PA-C - Last Filed: 01/11/23 07:42> Procedures Date of Service Date of Service: 01/11/23 <Jacqueline Christensen PA-C - Last Filed: 01/11/23 07:42> 01/11/23 <David Santos MD - Last Filed: 01/11/23 07:52> Progress Note: A&P Assessment and plan (1) Rectal foreign body: Status: Acute <Jacqueline Christensen PA-C - Last Filed: 01/11/23 07:42> Assessment and Plan: pod 3 following exploratory laparotomy, colotomy with removal of foreign body. Patient tolerating solid diet, now moving his bowels. Abdomen benign with clean incision. Stable for dc to home today. F/u in office in 1 week. Patient comfortable with plan. <Jacqueline Christensen PA-C - Last Filed: 01/11/23 07:42> Time Spent With Patient Time: Total time managing care of this patient today ____ minutes. <Jacqueline Christensen PA-C - Last Filed: 01/11/23 07:42> Quality Stroke Does the patient have a stroke diagnosis?: No <Jacqueline Christensen PA-C - Last Filed: 01/11/23 07:42> VTE Prior VTE?: No <Jacqueline Christensen PA-C - Last Filed: 01/11/23 07:42> VTE Risk Level:: Surgical - low <BOB Rodrigez Last Filed: 01/11/23 07:42> VTE Device Contraindication: N/A - Device Ordered <Jacqueline Christensen PA-C - Last Filed: 01/11/23 07:42> VTE Drug Contraindication: Treatment Not Indicated <Jacqueline Christensen PA-C - Last Filed: 01/11/23 07:42>
--- NOTE | 2023-01-11 08:37 | PM.DS ---
DS: Providers Provider Date of Service: 01/11/23 Date of admission: 01/08/23 05:25 Date of discharge: 01/11/23 Primary care physician: None Physician Attending physician on admission: Juana Rodriguez Attending physician on discharge: David Santos DS: Diagnosis Discharge Diagnosis (1) Rectal foreign body: Status: Acute DS: Summary Hospital Course Hospital Course: HPI AT ADMISSION: Geovanna Mercado is a 22 year old male Who with his partner earlier today inserted a silicone still though in the rectum which got stuck. They have been unable to get it. As result patient comes in here. He has been having some cramping but nothing in lines of peritonitis. No nausea or vomiting. Patient is relatively healthy otherwise. HOSPITAL COURSE: He was admitted to the surgical service for further treatment with plan to carry out exam under general anesthesia and hopefully remove it per rectum, possible exploratory laparotomy, possible colotomy and possible colostomy. Patient understands the risks and benefits and agrees to the procedure. On 01/07/23, EUA, attempted removal of foreign body rectally, exploratory laparotomy, colotomy and removal of sigmoid colon foreign body was performed by Dr. Rodriguez without immediate complication. The patient tolerated the procedure well. He had an uneventful post operative course. His diet was advanced to clear liquids and then solid diet as tolerated. He ambulated. He began passing flatus and moving his bowels. His pain was well controlled. His abdomen was benign with clean incision. He felt ready for discharge to home. He was discharged on 01/11/23 in stable condition with plan for follow up in the office in 1 week. Status at Discharge Functional status at discharge: independent ambulation Overall status at discharge: patient is progressing back to baseline Time Spent with Patient Time attestation: Total time managing care of this patient today ____ minutes. Discharge coordination time: Less than 30 minutes Quality: Safe Use of Opioids Does Pt have an Active Cancer Diagnosis on the Problem List?: No Quality: Stroke Does the patient have a stroke diagnosis?: No Physical Exam Vital Signs: Vital Signs: Last Vital Signs Temp 97.1 F 01/11/23 07:14 Pulse 66 01/11/23 07:14 Resp 16 01/11/23 07:14 BP 115/57 L 01/11/23 07:14 Pulse Ox 98 01/11/23 07:14 O2 Del Method Room Air 01/11/23 07:14 O2 Flow Rate 2 01/08/23 06:40 Oxygen Flow Rate 1 01/08/23 06:06 BMI result Body Mass Index 29.1 Const: General: comfortable, no acute distress and alert Orientation/consciousness: patient oriented x3 GI: Inspection: No distended and Yes incision (clean) Palpation (GI): Soft to palpation Skin: General skin exam: no rashes or lesions noted Neuro: General: patient oriented x3 and moves all extremities DS: Data Data Completed and Pending Pending studies at discharge: Pending at discharge 01/08/23 04:46 Surgical [PTH] Routine Discharge Plan Discharge Anticipated Discharge Date/Time: 01/11/23 07:42 Patient Disposition: Home, Self-Care Discharge Diagnosis: rectal foreign body, s/p ex lap, colotomy Referrals: David Santos MD [Physician] - 1 Week Physician,None [Primary Care Provider] - 1 Week Discharge Medications: New oxycodone 5 mg tablet 5 mg PO Q4H PRN (Reason: pain (scale score 7-10)) Qty: 26 0RF Rx Instructions: Partial Fill upon patient request. docusate sodium [Colace] 100 mg capsule 100 mg PO BID PRN (Reason: constipation) Qty: 30 0RF Discontinued amoxicillin-pot clavulanate [Augmentin] 875-125 mg tablet 1 tab PO Q12H 7 Days Qty: 14 0RF Discharge Orders: Discharge Order (Routine); Ordered 01/11/23 Ordered By: Jacqueline Christensen Diet: Advance to usual diet Activity on Discharge: No heavy lifting Stand Alone Forms: Patient Portal Discharge page, Work/School Release Activity Restrictions/Additional Instructions: If the incision area is tender, you may apply an ice pack for short intervals (No more than 20 minutes on, followed by at least 20 minutes off). Do not apply heat. Do not use creams, lotions, or topical antibiotics. These can cause infection or allergic reaction. Ok to shower. You have jefferson closing your incision and these will be removed approximately 10-14 days after surgery. NO HEAVY LIFTING (>10lbs) or strenuous activity. Follow up in office in [address] Santos. ([phone]) Call Your Doctor If: -Your temperature exceeds 101.5? F -You experience excessive pain or swelling -You have an unexpected reaction to medication -You have excessive bleeding -You experience continued vomiting/nausea -Your incision begins to separate -Your incision shows signs of infection such as increased redness, swelling, excessive pain, drainage (light blood or clear fluid is normal) or heat Care Plan Goals: Return to baseline health and resume normal activities following recovery period. Health Concerns: foreign body Plan of Treatment: s/p ex laparotomy, colotomy, foreign body removal pain control f/u in office for staple removal Assessment: Doing well post op Discharge Date/Time: 01/11/23 11:49
--- NOTE | 2023-01-11 10:50 | MHC.CM.PN ---
Pt is medically cleared for DC, family is present and able to bring him home.
--- NOTE | 2023-01-12 08:09 | W.PM.OPN ---
Operative Note Operative Note Date of Service: 01/08/23 Narrative: Preoperative diagnosis-- : Foreign body Postprocedure diagnosis-- same Procedure done -- attempted transanal removal colonic foreign body with conversion to exploratory laparotomy colotomy and removal of foreign body Surgeon-- Michael Anesthesia-- general The patient is a 22-year-old male who several hours before with his partner placed moderate size dildo transanally into the rectum but the whole thing got inserted and then moved upwards. In attempting to remove it it broke such that they removed the lower part but it the stool farm body was pushed for words. Since they could not remove it they came to the emergency room where CT scan shows it to be in the sigmoid colon and no evidence of any perforation or free air. Patient is stable and comes to the OR. Procedure-- patient was brought to the operative room and under anesthesia guidance was intubated. He was placed in stirrups and placed head up rectal exam did not reveal foreign body to be palpable but with pushing on the left lower quadrant and being able to get almost my complete hand in and eventually my whole hand in the rectum at some point the tip of the object was barely palpable. The colonoscope was placed in and we could see the barn body which looked to be a silicone material. We were eventually able to get past this proximally and the colon here looked fine. Air was inflated here to in order to try to see if we can push the dildo lower down but this was unsuccessful. About 2 hours was spent doing the scope trying to get a snare around it with just slipped off of it as it was more in a transverse angle verses a vertical angle right where the colon turned from the distal sigmoid into the rectosigmoid area. A grasper was placed to and grabbed the end of a dildo but the silicone material just tore in the process we were at some point able to bring it down a little bit more and I could with my full hand in the rectum try to move it but we were unsuccessful to do this. And unfortunately it eventually pushed the dildo back higher into the sigmoid. We tried grasping it with a towel clamp but it was difficult to do this as there were fulls of tissue which kept falling in the way and getting in to the clamp as well and we did want a risk tearing the distal sigmoid colon upper rectum which was getting very irritated and inflamed and swollen. The hemorrhoidal tissue was very injury did and at times patient did have some rectal bleeding with manipulation transanally. A 1 point a Rodriguez catheter was also inserted and we were able to get it proximally inflate the balloon and try to put it down but it was unable to budge the dildo or change its orientation. At this point was decided to carry a the exploratory laparotomy and maybe then try to manipulate the direction of the dildo to be able to be passed transanally or worse case an area created a colotomy to remove it that way. A midline incision was created little around the umbilicus and then inferiorly and with the scalpel and cautery and the peritoneal cavity was entered immediately the tip of the deltoid was felt right under the umbilicus. We were able to pack away the small bowel head down on the patient and isolate these sigmoid colon with the dildo right underneath. An area along the tinea was chosen and about 4 cm incision was made with a scalpel as well as the cutting of the cautery. We entered the bowel cavity and the dildo was grasped and removed with a Hooker clamp. There was minimal to no visible spillage of any stool material and then this colotomy was closed with 3 0 Vicry from both ends and tied in the middle. The second layer closure was with some interrupted silks which covered the colotomy. This was all done in an area proximal to where the dildo was so the tissue was healthy and there was no compromise of the lumen. Area was then irrigated and then the midline incision closed with 0 PDS superiorly and inferiorly and tied in the middle area was then irrigated with Betadine saline and Vicryl sutures approximated the subcutaneous fat and then jefferson were used to approximate the skin edges. It should be noted that on entering the abdomen after the laparotomy and Shahana skin protector retractor was used to try to decrease any chances of skin soft tissue contamination during this procedure. Rodriguez catheter in place at the beginning of the case and this was kept in place. At the end of the case all sponge instrument needle counts were correct. Estimated blood loss was minimal with exploratory laparotomy there was some bleeding from the hemorrhoids with a transanal approach. The patient was extubated returned stable to recovery room with a Rodriguez catheter left in place in case of issues with voiding secondary to the rectal manipulation. chele
== END 2023-01-11 11:49 | disposition home or self-care (01) | DRG 346 ==
LOC: HO.ED 01-08 03:34 → HO.S3 01-08 05:48
PROVIDERS: Admitting Provider Surgery; Emergency Provider Emergency Medicine; Visit Provider Surgery
PROC: (CPT 49000; principal; 2023-01-07 23:30)
DX: T18.5XXA Foreign body in anus and rectum, initial encounter (principal); W44.G9XA Other non-organic objects entering into or through a natural orifice, initial encounter
CPT/HCPCS: 36415; 72170; 72192; 80048; 80076; 85025; 85610; 85730; 93005; 99284; C1758; J0131; J0690; J1100; J1885; J2250; J2270; J2405; J3010

== ENCOUNTER → 2023-01-07 20:19 | Outpatient (BNV) | payer MEDICAID, SELFPAY | PROVIDERS: Emergency Provider Emergency Medicine; Visit Provider Surgery | DX: T18.5XXA Foreign body in anus and rectum, initial encounter (principal) | CPT/HCPCS: 44025; 99024; 99222 ==

== ENCOUNTER 2023-01-20 12:12 | Outpatient (AMB) | payer MEDICAID, SELFPAY ==
--- NOTE | 2023-01-20 12:13 | MHC.OFFVIS ---
Intake Intake Visit Reasons: exp laparotomy colotomy ,removal of foreign body Intake Note: This patient presents for a post-op assessment status post attempted transanal removal colonic foreign body with conversion to exploratory laparotomy colotomy and removal of foreign body. Patient c/o; reports no complaints at this time. 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 He underwent laparotomy and retrieval of a FB from the sigmoid via a colotomy last Jan 08, [address] Rodriguez. He says he ahs been doing well. HE has good oral intake and good GI function. He denies severe pain and states he seems to be doign quite well postop. [facility] Medical History No known health problems Surgical History (Updated 01/20/23 @ 12:40 by Jasmeet Mcdaniel MD) S/P exploratory laparotomy (01/08/23) Social History Household Members: Significant Other Housing: House Patient Tobacco Use Status: Never used Tobacco e-Cigarette/Vaping Use: Currently Using Substance Use Type: Marijuana service: No Review of Systems Const Denies chills and Denies fever(s) Card Denies chest pain, Denies dyspnea and Denies dyspnea on exertion Resp Denies cough, Denies dyspnea and Denies dyspnea on exertion GI Denies hematochezia and Denies change in bowel habits Denies hematuria and Denies difficulty urinating Musc Denies back pain and Denies limited range of motion Neuro Denies focal weakness and Denies convulsions Psych Denies depression and Denies mood swings Physical Exam Const General: comfortable and no acute distress Resp Effort & Inspection: normal respiratory effort Cardio Rate: regular rate GI Other: midline incision healing well, clean, no signs of infection, jefferson in place Inspection: No distended Palpation (GI): Soft to palpation, not firm, nontender and no guarding Assessment & Plan Assessment & Plan (1) S/P exploratory laparotomy: Onset Date: 01/08/23 Comment: Dr. Rodriguez, colotomy, removal of rectal foreign body Code(s): Z98.890 - Other specified postprocedural states Plan: He seems to be doing very well postoperatively. His incision is healing well. He has good GI function. I removed his skin jefferson. I advised him to avoid lifting of more than 20 lbs nor engaging in strenuous activities for at least 3 more weeks. He can otherwise ffup on a prn basis. Coding Level of Care Code Global (71327) Diagnoses S/P exploratory laparotomy Z98.890
== END 2023-01-20 12:19 | disposition home or self-care (01) ==
PROVIDERS: Visit Provider Surgery
DX: Z98.890 Other specified postprocedural states (principal)
CPT/HCPCS: 99024

== ENCOUNTER → 2023-01-20 12:12 | Outpatient (BNVA) | payer SELFPAY | PROVIDERS: Visit Provider Surgery ==